=== PATIENT | male | born 1965 | race Caucasian/White ===

== ENCOUNTER 2018-10-14 09:21 | Inpatient (IN) | payer OTHER ==
[2018-10-14] MEDS ORDERED: ZIPRASIDONE 20 MG VIAL IM STA (09:47)
[2018-10-14] MEDS ORDERED: LORazepam 2 MG/ML INJ IM STA (09:47)
--- NOTE | 2018-10-14 10:03 | ED ---
General Adult HPI <James Vazquez - Last Filed: 10/14/18 11:00> - General Source: police, RN notes reviewed, old records reviewed Mode of arrival: ambulatory Limitations: no limitations <Andra Prajapati - Last Filed: 10/14/18 12:17> - General Chief complaint: Psychiatric Symptoms Stated complaint: petition Time Seen by Provider: 10/14/18 09:23 - History of Present Illness Initial comments: 53-year-old male presents to the emergency department today with complaints of petitioned. Patient is petitioned by nursing staff at [facility] for delusional behavior, auditory and visual hallucinations. Patient reportedly thinks that there are women and children being raped. He states that he they Group Home is attempting to retrieve his DNA. Patient was uncooperative and combative with police upon arriving to hospital. 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 Patient is uncooperative to say he has a mental health history. (Andra Prajapati) Review of Systems ROS Other: All systems not noted in ROS Statement are negative. <James Vazquez - Last Filed: 10/14/18 11:00> ROS Other: All systems not noted in ROS Statement are negative. <Andra Prajapati - Last Filed: 10/14/18 12:17> ROS Statement: Those systems with pertinent positive or pertinent negative responses have been documented in the HPI. Past Medical History Past Medical History: No Reported History History of Any Multi-Drug Resistant Organisms: None Reported Past Surgical History: No Surgical Hx Reported Smoking Status: Never smoker Past Alcohol Use History: Occasional Past Drug Use History: None Reported <Andra Prajapati - Last Filed: 10/14/18 12:17> General Exam Limitations: no limitations General appearance: alert, in no apparent distress Head exam: Present: atraumatic, normocephalic, normal inspection Eye exam: Present: normal appearance, PERRL, EOMI. Absent: scleral icterus, conjunctival injection, periorbital swelling ENT exam: Present: normal exam, mucous membranes moist Neck exam: Present: normal inspection. Absent: tenderness, meningismus, lymphadenopathy Respiratory exam: Present: normal lung sounds bilaterally. Absent: respiratory distress, wheezes, rales, rhonchi, stridor Cardiovascular Exam: Present: regular rate, normal rhythm, normal heart sounds. Absent: systolic murmur, diastolic murmur, rubs, gallop, clicks GI/Abdominal exam: Present: soft, normal bowel sounds. Absent: distended, tenderness, guarding, rebound, rigid Extremities exam: Present: normal inspection, full ROM, normal capillary refill. Absent: tenderness, pedal edema, joint swelling, calf tenderness Back exam: Present: normal inspection Neurological exam: Present: alert, oriented X3, CN II-XII intact Psychiatric exam: Present: agitated, manic, other (Evidence of pressured speech. Patient is delusional, and paranoid. Believing that the government is after him. ). Absent: normal affect, normal mood Skin exam: Present: warm, dry, intact, normal color. Absent: rash <Andra Prajapati - Last Filed: 10/14/18 12:17> - General Exam Comments Initial Comments: This is a 53-year-old male. Alert and oriented. No distress. (Andra Prajapati) Course Vital Signs 10/14/18 09:22 Respiratory 14 Rate Medical Decision Making <James Vazquez - Last Filed: 10/14/18 11:00> <Andra Prajapati - Last Filed: 10/14/18 12:17> - Medical Decision Making Patient reevaluated by myself, Dr. Vazquez. Patient was seen by mental health services with plan for admission. Patient is expressing paranoid behavior. Patient has flight of ideas. Patient is agitated at being questioned. Patient states he has never supposed to be on medications and will only take medications if given by the FBI. Patient denies suicidal or homicidal thoughts. Patient states he has been eating or drinking. Patient is confabulating and states it is fraud to attempt to evaluate or bill him. Patient is under custody of officers at this time. Patient does come with petition. Positive clinical certificate completed. (James Vazquez) 53-year-old male presents for EPS evaluation. He is currently at [facility]. Patient was noted to be expressing paranoid behavior bleeding at the FBI and government are after him. Had pressured speech. He has not trusting people around him. Patient at this time is medically clear for EPS evaluation. Tito bonner was petitioned and clinical certification was filled out by Dr. Vazquez. Patient will be admitted this time. Due to agitation we do have Ativan and Geodon ready at bedside if he would become hostile. he is with 2 [facility] officers. (Andra Prajapati) Disposition <James Vazquez - Last Filed: 10/14/18 11:00> Is patient prescribed a controlled substance at d/c from ED?: No Time of Disposition: 12:17 <nAdra Prajapati - Last Filed: 10/14/18 12:17> Clinical Impression: Paranoid delusion, Confabulation, Psychosis Disposition: ADMITTED IP TO THIS HOSP Condition: Stable Referrals: None,Stated [Primary Care Provider] - 1-2 days
[2018-10-14 13:39] LABS: Amphetamine Screen,Urine Not Detected (NotDetected); Barbiturate Screen,Urine Not Detected (NotDetected); Benzodiazepines Screen,Urine Not Detected (NotDetected); Cocaine Screen,Urine Not Detected (NotDetected); Methadone Screen, Urine Not Detected (NotDetected); Opiate Screen,Urine Not Detected (NotDetected); Oxycodone Screen, Urine Not Detected (NotDetected); Phencyclidine Screen,Urine Not Detected (NotDetected); Tricyclic Antidepressant,Urine Not Detected (NotDetected); Urn Cannabinoid Scrn Not Detected (NotDetected)
[2018-10-14] MEDS ORDERED: MAGNESIUM HYDROXIDE 2,400 MG/10 ML CUP PO PRN (15:18)
[2018-10-14] MEDS ORDERED: ZIPRASIDONE 20 MG VIAL IM PRN (15:18)
--- NOTE | 2018-10-15 07:00 | P.PN ---
Progress Note - Text Progress Note Date: 10/15/18 patient refused to be seen for medical evaluation at this point
--- NOTE | 2018-10-15 16:45 | HP ---
HISTORY AND PHYSICAL DATE OF SERVICE: 10/15/2018. This is a psychiatric admission note, psychiatric history and physical. IDENTIFYING DATA: The patient is a 53-year-old male. Living circumstances are uncertain. He was brought to the ED by police. CHIEF COMPLAINT: The patient was paranoid, believing that he and people around him were being threatened. He had delusions and auditory hallucinations. His thoughts were disorganized. HISTORY OF PRESENTING ILLNESS: The patient provided no reliable information and in fact essentially ended the interview after just a couple questions. He came on petition for involuntary hospitalization. According to the petition, the patient was expressing a lot of persecutory delusions. He talked about violence, killing and threats. He made statements as follows: He believed a certain deputy is a "drug lord ana lilia pin and needs to and that "women are being raped and killed." He believed [employer] was creating a date rape drugs that are being given to all women. He was placed in care home on 09/08/2018 for trespassing, disorderly conduct, resisting and obstructing. He was not cooperative with any evaluations whether in care home or at the hospital. He apparently has recently moved from the [facility], though there were no details regarding this. It is unclear whether he has been on any psychotropic medications. He did not provide information as to whether or not he has had any past psychiatric hospitalizations or other mental health interventions. He is admitted for further evaluation. SUBSTANCE USE HISTORY: Uncertain. PAST MEDICAL HISTORY: As per medical consultation of Dr. Marie. PHYSICAL EXAM: As per medical consultation of Dr. Marie. FAMILY AND SOCIAL HISTORY: Uncertain. MENTAL STATUS EXAM: Patient was a restless. He gave fair eye contact at best. He responded to a few questions by talking about some legal process that was in the works. He made one comment that he had already provided information and was not going to provide anymore. He then got up and left the interview. His thoughts seemed disorganized. He exhibited paranoid thinking. ASSESSMENT: This 53-year-old male is diagnosed with psychosis NOS. We have no history to go on which presents major limitations in ability to evaluate and treat psychosocial stressors are uncertain. Support system unknown. STRENGTHS: Include his general physical health. WEAKNESS: Includes significant thought disorder. DIAGNOSES: Psychosis NOS. RECOMMENDATIONS: Patient will be admitted for comprehensive medical psychiatric and psychosocial evaluation. We will engage the patient in individual and group therapeutic activities. The patient will be encouraged to start on psychotropic medications. I will order Zyprexa 10 mg twice a day. At this point, I anticipate the patient is not likely to take medications based on his presentation. We will continue with the process for involuntary hospitalization. We will continue to focus on stabilization and discharge planning. HUSAM / SEAN: [id number] / MTDFelipe
[2018-10-15] MEDS: OLANZapine 10 MG TAB PO SCH (21:00)
[2018-10-16] MEDS ORDERED: HALOPERIDOL LACTATE 5 MG/ML 1 ML VIAL IM PRN (08:40)
[2018-10-16] MEDS ORDERED: LORazepam 2 MG/ML INJ IV PRN (08:46)
[2018-10-16] MEDS: OLANZapine 10 MG TAB PO SCH (10:06)
[2018-10-16] MEDS ORDERED: LORazepam 2 MG/ML INJ IM PRN (10:19)
--- NOTE | 2018-10-16 12:01 | PN ---
PROGRESS NOTE DATE OF SERVICE: 10/16/2018 CHIEF COMPLAINT: The patient was paranoid, believing that he and people around him were being threatened. He had delusions and auditory hallucinations. His thoughts were disorganized. INTERVAL HISTORY: Patient has been doing fair. He had a quiet evening last night. He wanders the unit. He does not really interact with others. Sometimes he will be talking quite a bit, though much of what he says either has paranoid themes or is difficult just to clarify the meaning of things he is saying. He makes statements that are quite delusional. He slept fair. Today he has been up. He continues the same. He does not attend groups. A typical response is documented as follows "blog writer attempted to engage, patient walked away shaking had no." When I talked to him, the response was pretty similar. He made comments about how Psychiatry is wrapped up with people just trying to make money and also that medications will kill people. He actually talked a little bit and seemed slightly more engaging, though he really was not able to have any kind of a productive conversation. There have been a few periods where he seems to get intense, though there has not been significant behavioral issues. He declines taking any psychotropic medications. MENTAL STATUS: Patient was in the anderson. He gave fair eye contact, he was restless. He responded to a few questions but most of his statements were tangential to questions asked. His affect was a little intense, though overall he had a fairly calm manner. He did dismiss the conversation at one point and simply walked away. His mood was dysphoric. He continues to make a lot of delusional statements. Whether or not he responds to internal stimuli beyond his paranoia is uncertain. ASSESSMENT: I will continue the current diagnosis and treatment plan. Will continue to make efforts to engage the patient in individual and group therapeutic activities. He has an antipsychotic ordered. However, at this point, he is declining taking medications. We are continuing with the process of petitioning for involuntary treatment. MMODL / IJN: [id number] /
[2018-10-17] MEDS: OLANZapine 10 MG TAB PO SCH ×3 (06:14→22:04)
--- NOTE | 2018-10-17 11:59 | PN ---
PROGRESS NOTE DATE OF SERVICE: 10/17/2018 CHIEF COMPLAINT: The patient was paranoid, believing that he and people around him were being threatened. He had delusions and auditory hallucinations. His thoughts were disorganized. INTERVAL HISTORY: The patient remains static in his overall function. He does not attend groups. He wanders the unit, he will walk up and down the halls. Sometimes he will make some comments. At times the comments are random, at other times he might say something specific to staff, most of the time it has to do that he intends to resolve his issues in the courts. He sleeps fair at nighttime. Today he has been up. He continues to wander. When I made an effort to speak to him, he just walked away. As he was walking away, he made some comments about seeing me in court, though he did not say anything more than that. His affect is somewhat intense. Mood dysphoric. He seems significantly distressed and preoccupied with paranoid delusions. ASSESSMENT: I will continue the current diagnosis and treatment plan. I continue to offer to the patient that if he has any problems or concerns, to approach any of our staff or myself. I also noted that I have written an order for some medications if he chooses to take them, which may help overall. We continue to wait for the court process to proceed with involuntary hospitalization. We will continue to focus on stabilization and discharge planning. HUSAM / SEAN: [id number] /
[2018-10-18] MEDS: OLANZapine 10 MG TAB PO SCH ×2 (10:39→20:04)
--- NOTE | 2018-10-18 18:48 | PN ---
PROGRESS NOTE DATE OF SERVICE: 10/18/2018. CHIEF COMPLAINT: The patient was paranoid, believing that people around him were being threatened. He had delusions and auditory hallucinations. His thoughts were disorganized. INTERVAL HISTORY: The patient continues the same. He wanders the unit. He will sit in various places in the day areas. He does not interact much with others as far as what I can tell. He does not attend groups. Often he will make some tangential comments if staff walk by making statements such as taking them to court. He will not provide any reliable information about his current situation or any concerns he might have. MENTAL STATUS: Patient was sitting in the anderson. When I approached him, he got up and walked away. I did see him very briefly a little later on, though was essentially the same. He made a comment about suing all of the staff. His affect was intense. His mood dysphoric. He was significantly distressed. He exhibited paranoid thinking. ASSESSMENT: I will continue current diagnosis and treatment plan. We will continue to make efforts to engage the patient in individual and group therapeutic activities. We will continue with the court process. HUSAM / SEAN: [id number] /
[2018-10-19] MEDS: OLANZapine 10 MG TAB PO SCH ×2 (10:02→19:57)
--- NOTE | 2018-10-19 19:34 | PN ---
PROGRESS NOTE DATE OF SERVICE: 10/19/2018. CHIEF COMPLAINT: The patient was paranoid, believing that people around him are being threatened. He had delusions and auditory hallucinations. His thoughts were disorganized. INTERVAL HISTORY: The patient continues the same. He wanders the unit. He will sit in various day areas. He seems to pay attention to things going on around him. He does not interact with others. When I came into the unit today he was sitting in a chair near the entrance door. I asked how he was doing and if he had any questions. At that point, he got up and walked away. As he was walking away, he made the statement that he plan to veena [employer] Marce in court. He otherwise would not engage in any conversation. He sleeps well at night. He continues off psychotropic medications. MENTAL STATUS: Patient gave a little eye contact. He declined coming into the office. He made a few tangential comments as the only thing that he communicated. He had an intense affect. His mood was dysphoric. He seemed moderately distressed. He continues to show paranoid ideation. ASSESSMENT: I will continue the current diagnosis and treatment plan. He continues all psychotropic medications. We continued with the court process. MMODL / JESSICAN: [id number] /
[2018-10-20] MEDS: OLANZapine 10 MG TAB PO SCH ×2 (08:59→21:51)
--- NOTE | 2018-10-20 09:08 | PN ---
PROGRESS NOTE DATE OF SERVICE: 10/20/2018 CHIEF COMPLAINT: The patient was paranoid, believing that people around him are being threatened. He had delusions and auditory hallucinations. His thoughts were disorganized. INTERVAL HISTORY: There has been no appreciable change in his condition since admission. He declines taking medications. He declines talking with me when I do rounds or to that matter pretty much any staff person. He keeps to himself. He does seem to be hypervigilant. He has not had any significant behavioral difficulties other than his withdrawal. He continues to make comments with paranoid themes. MENTAL STATUS: The patient was sitting in his usual place in the unit near the back telephone. He was just sitting quietly when I came in I approached him a little later in the morning and he had his usual response of standing up and walking away. He made some mumbling comments though was hard to hear what he was saying. His affect was reserved and somewhat angry. He appeared to have a dysphoric mood. He continues with paranoid thinking. He seems moderately distressed. ASSESSMENT: I will continue the current diagnosis and treatment plan. We will continue the plan the same namely to proceed with the involuntary treatment process. There is a hearing scheduled for Saturday. We will focus on stabilization and discharge planning. MMLILLIAML / IJN: [id number] /
[2018-10-21] MEDS: OLANZapine 10 MG TAB PO SCH ×2 (08:23→22:19)
--- NOTE | 2018-10-21 10:17 | P.PN ---
Progress Note - Text Progress Note Date: 10/21/18 Interval history: The patient was admitted to the hospital with acute symptoms of psychosis from the prison. The psychiatric evaluation was reviewed. The patient is found in his room. Immediately upon approach he states he does not wish to have a conversation with me. He rejects the idea that I am the psychiatrist assigned to his case. He states he does not need my services and accuses me of" bullying him". He states that I am participating in extortion. He states that he will be pressing charges against me if I don't leave the room immediately. An opportunity was offered for him to ask any questions about treatment options or the hospitalization and he refused. He started to become louder and started to escalate as the brief interaction continued until I left the room. He was not willing to me in an interview room. Mental status exam: The patient is a male he is dressed in his own clothing he is lying on the floor reviewing papers and a half older. He is agitated upon approach. He demonstrates paranoid and persecutory thinking. He begins to escalate as the session progresses. He was intrusive in the conversation. Thought process was not well organized. Insight and judgment are poor. He demonstrates no involuntary repetitive movements. He would not answer any questions. Impression/plan: Acute symptoms of psychosis suspect history of schizophrenia/schizoaffective disorder, the patient is being offered Zyprexa 10 mg twice daily which she is refusing. We are awaiting his deferral conference/court hearing. Vital signs reviewed. Available lab work reviewed. Staff report that he slept 4 hours last evening. We will monitor his by mouth intake in general safety risk while here in the hospital. He requires continued involuntary hospitalization due to his acute symptoms of psychosis.
[2018-10-22] MEDS: OLANZapine 10 MG TAB PO SCH ×2 (08:55→21:00)
--- NOTE | 2018-10-22 09:59 | P.PN ---
Progress Note - Text Progress Note Date: 10/22/18 Interval history: The patient's is found in his room kneeling on the floor at the foot of his bed. He refuses to engage in a conversation he will not follow me to an interview room. He gets up and closes the door to his room. Staff report he slept 4 hours. He is attending meals. He is noted to ambulate in the hallway throughout the day. He states that I'm not in control of him and I am invading his privacy. Mental status exam: The patient is alert he is found kneeling on the floor at the foot of his bed. He makes eye contact. He is immediately irritable. He makes statements reflecting a paranoid and persecutory thought content. He gets up and closes the door on me concluding our interaction. His speech and behavior indicate that he is experiencing acute symptoms of psychosis. Insight and judgment are poor. He is refusing medication. He was observed to have no involuntary repetitive movements. Impression/plan: Acute symptoms of psychosis, noncompliant with interview and medication. We are awaiting his court hearing this Saturday. We will continue to monitor him for safety. It appears he is refusing vital signs. We will monitor his by mouth intake.
--- NOTE | 2018-10-23 11:13 | P.PN ---
Progress Note - Text Interval history: The patient's is found in the hallway as he is been ambulating throughout the morning. Twice I approached him to speak and he refuses to participate in an interview. After he refuses to meet with me he does make some statements loudly down the hallway as he is walking away. Staff report that he has been isolating in his room other than when he is pacing the hallway. Reportedly he is eating meals. It's documented that he slept 6 hours last evening. Mental status exam: The patient is alert he stressors own clothing eye contact is poor. He remains irritable and continues to refuse an interview. He makes statements about being held illegally that he is being exploited. Staff report that he writes numerous letters and asked that they be mailed. Insight and judgment are poor. He demonstrates speech and behavior indicating he has a delusional thought content. These symptoms appear to be causing significant psychosocial dysfunction. He demonstrates no involuntary repetitive movements that are observed during our brief interactions. Impression/plan: The patient's continues to demonstrate acute symptoms of psychosis. He requires an antipsychotic medication which he is refusing. He has a court date scheduled for tomorrow morning. We will continue to monitor him for safety. It appears he is refusing vital sign measurement.
[2018-10-23] MEDS: OLANZapine 10 MG TAB PO SCH ×2 (11:35→20:28)
[2018-10-24] MEDS: OLANZapine 10 MG TAB PO SCH (08:35)
--- NOTE | 2018-10-24 15:43 | P.PN ---
Progress Note - Text Progress Note Date: 10/24/18 Interval history: The patient was found in the hallway. Once again attempt was made to interview him but he refused. He spontaneously stated he was not going to go to court this morning as he required escort by city police officers and not sure if deputies. He states that I am an extortionistand he walked away. As he walked away he was observed talking out loud to himself. He was observed doing the same throughout the morning. Mental status exam: The patient is alert he is easily agitated he is dressed in his own clothing. He has a disheveled appearance. Eye contact is brief. Affect is irritable. He continues to spontaneously describe paranoid and persecutory thinking. Insight and judgment are impaired. Thought process is not well organized. He demonstrates no physical aggressiveness. He demonstrates no involuntary repetitive movements. Impression/plan: The patient continues to demonstrate acute symptoms of psychosis impairing his function. We will initiate invega 6 mg daily. He is on a court order if he refuses the medication he will receive a Geodon injection. We will monitor him for safety and encourage appropriate participation in the milieu. Reality orientation will be provided when possible.
[2018-10-24] MEDS: PALIPERIDONE 6 MG TAB.ER.24 PO SCH ×2 (15:52→16:03)
[2018-10-24] MEDS: ZIPRASIDONE 20 MG VIAL IM PRN (16:03)
[2018-10-25] MEDS: PALIPERIDONE 6 MG TAB.ER.24 PO SCH (09:24)
[2018-10-25] MEDS: ZIPRASIDONE 20 MG VIAL IM PRN (09:30)
--- NOTE | 2018-10-25 10:33 | P.PN ---
Progress Note - Text Progress Note Date: 10/25/18 Interval history: Patient was seen briefly after he received a forced med administration as he is currently court ordered. Patient tolerated the Geodon well. Patient was reluctant and hostile to talk to scientific writer. He told scientific writer to leave the room several times and swore at him. Patient continues to be tangential and illogical and rambled on several different delusions. She did not endorse any suicidal or homicidal ideations intent or plan. Admits to some Auditory hallucinations. Patient denies any side effects from the medications however continues to refuse his Invega by mouth tabs. Mental status exam: General Appearance: Patient appears to be stated age is alert, uncooperative and hostile. Poor grooming and hygiene Behavior: Patient appeared to be mildly agitated. Speech: Patient's speech is disorganized Mood/Affect: Mood is poor, affect is congruent and constricted. Suicidality/Homicidality: Patient denies having any suicidal or homicidal ideation intent or plan. Perceptions: Admits to some auditory hallucinations. Though content/process: Rambles, several loosely formed delusions. Is tangential and illogical. Memory and concentration: AOX2, grossly intact for the purposes of this session Judgment and insight: Poor Assessment/Plan: Continue with current diagnosis. Patient continues to meet criteria for inpatient psychiatric admission for symptom stabilization and safety.[Patient will be maintained on current psychotropic medication regimen.] Patient continues to refuse Invega by mouth, however does have a active court order and will be receiving Geodon IM if he refuses his by mouth medications. Monitor for medication compliance and for any psychotropic medication side effects. Will continue to monitor ongoing response to treatment.
[2018-10-26] MEDS: ZIPRASIDONE 20 MG VIAL IM PRN ×2 (09:03→21:29)
[2018-10-26] MEDS: PALIPERIDONE 6 MG TAB.ER.24 PO SCH (09:03)
--- NOTE | 2018-10-26 12:07 | P.PN ---
Progress Note - Text Progress Note Date: 10/26/18 Interval history: Patient was seen briefly today after he received another forced med administration as he is currently court ordered. Patient tolerated the Geodon well. Patient again was hostile and reluctant to speak to engineering technical writer in the room and was covered in blankets and turned his head when engineering technical writer came into the room. Patient asked repeatedly if engineering technical writer was the one that ordered the med hold and it was explained to him that that she is court ordered at this time and is required to receive the medications. Patient interrupted engineering technical writer several times swearing and refusing to talk to him. Patient continues to be tangential and illogical and rambled on several different delusions. She did not endorse any suicidal or homicidal ideations intent or plan. Patient denies any side effects from the medications however continues to refuse his Invega by mouth tabs. Mental status exam: General Appearance: Patient appears to be stated age is alert, uncooperative and hostile. Poor grooming and hygiene Behavior: Patient appeared to be mildly agitated. Speech: Patient's speech is disorganized, improving mildly Mood/Affect: Mood is poor, affect is congruent and constricted. Suicidality/Homicidality: Patient denies having any suicidal or homicidal ideation intent or plan. Perceptions: Admits to some auditory hallucinations. Though content/process: Rambles, several loosely formed delusions. Is tangential and illogical. Memory and concentration: AOX2, grossly intact for the purposes of this session Judgment and insight: Poor Assessment/Plan: Continue with current diagnosis. Patient continues to meet criteria for inpatient psychiatric admission for symptom stabilization and safety. Patient will be maintained on current psychotropic medication regimen. Patient continues to refuse Invega by mouth, however does have a active court order and will be receiving Geodon IM if he refuses his by mouth medications. Monitor for medication compliance and for any psychotropic medication side effects. Will continue to monitor ongoing response to treatment.
[2018-10-26] MEDS: LORazepam 2 MG/ML INJ IM PRN (21:30)
[2018-10-27] MEDS ORDERED: HALOPERIDOL LACTATE 5 MG/ML 1 ML VIAL IM STA (06:05)
[2018-10-27] MEDS: LORazepam 2 MG/ML INJ IM PRN (06:15)
[2018-10-27] MEDS: PALIPERIDONE 6 MG TAB.ER.24 PO SCH (09:44)
[2018-10-27] MEDS ORDERED: WATER FOR INJECTION, STERILE 10 ML IV ONE (09:45)
[2018-10-27] MEDS ORDERED: ZIPRASIDONE 20 MG VIAL IM ONE (09:45)
[2018-10-27] MEDS: ZIPRASIDONE 20 MG VIAL IM PRN (10:17)
--- NOTE | 2018-10-27 11:10 | P.PN ---
Progress Note - Text Interval history: The patient is found in his room he tolerated a five-minute conversation while he was in his room. he later approached me during the morning and we spoke in an interview room. That conversation last approximately 10-15 minutes. He asked several questions asked how he was admitted here from the senior care. He is bothered by the idea that he is being forced to take psychotropic medication. His questions were addressed. He has finally participated in a conversation but he remains acutely delusional. He states he has no symptoms he does not require medication and he is being in wrongly held against his will. He states that he will do better being on the streets and describes some ways in which he obtains food. He states that is his goal to get to [place] where they treat people better. He has been refusing the oral invega. He's been receiving Geodon injections when he refuses. Due to agitation he received a Haldol injection this morning. He was given an opportunity to discuss alternatives to invega but he does not participate in the conversation. Mental status exam: The patient is alert he is dressed in his own clothing. He is a disheveled appearance. There was some follow body odor detected when speaking to him in his room. Eye contact is staring in nature. Speech is spontaneous he is verbose and pressured at times. He continues to interrupt me in conversation even when I'm trying to answer a question he asked. He continues to demonstrate several types of paranoid persecutory thinking. He spends most of the time discussing how the Direct [employer] Manager's deputies and our local personnel clerk are trying to start a human trafficking reigning in the senior care. He states that they're trying to get medicines made by embraase to make people unconscious so they can be raped. Insight and judgment are poor. He demonstrated no verbal or physical aggressiveness he demonstrates no involuntary repetitive movements. Impression/plan: Acute symptoms of psychosis likely part of a schizophrenia diagnosis, we will continue offering the invega. He is receiving Geodon injections when he refuses. There is some improvement in that he participated in a conversation however he remains acutely psychotic still. We will consider switching him to Haldol and later utilizing a Haldol decanoate. Vital signs reviewed. We will monitor him for safety.
[2018-10-28] MEDS: ZIPRASIDONE 20 MG VIAL IM PRN (10:41)
[2018-10-28] MEDS: PALIPERIDONE 6 MG TAB.ER.24 PO SCH (10:51)
--- NOTE | 2018-10-28 10:59 | P.PN ---
Progress Note - Text Interval history: The patient is found in the hallway. Despite two attempts he refused to meet with me and provided no verbal response. He continues to refuse the oral Invega and has been receiving a Geodon injection instead. He has not been attending groups he will isolate in his room when he is not ambulating in the hallway. Staff report that he is adequately eating. It was reported that he did not sleep last evening. Mental status exam: The patient is alert he is observed ambulating in the hallway throughout the morning. He has a disheveled appearance hygiene is impaired. He has a staring eye contact. He provides no verbal responses to questions. He is observed yelling out to staff this morning out of frustration that he has to take a psychotropic medication. He was redirectable by staff. Insight and judgment remain poor. He is demonstrating no involuntary repetitive movements. He continues to have a delusional thought process. Impression/plan: Continued acute symptoms of psychosis impairing psychosocial function. The patient has been on a court order now for several days we have continue to offer the invega orally which he will not take. He has received several Geodon injections in place of the oral invega. It is important that the patient leaves the mental health unit on an injectable Depo form of an antipsychotic. At this time we will discontinue the invega and offer oral Haldol and he will receive Haldol IM if he refuses in that we can provide a Haldol decanoate injection prior to discharge. Vital signs reviewed. We will continue to monitor him for safety. He requires continued psychiatric hospitalization.
[2018-10-28 13:21] VITALS: BMI 26.6
[2018-10-29] MEDS ORDERED: LORazepam 2 MG/ML INJ ONE (03:45)
[2018-10-29] MEDS ORDERED: HALOPERIDOL LACTATE 5 MG/ML 1 ML VIAL ONE (03:45)
[2018-10-29] MEDS ORDERED: HALOPERIDOL 5 MG TAB PO SCH (09:00)
[2018-10-29] MEDS: HALOPERIDOL LACTATE 5 MG/ML 1 ML VIAL IM PRN ×2 (09:38→21:47)
--- NOTE | 2018-10-29 09:58 | P.PN ---
Progress Note - Text Progress Note Date: 10/29/18 Interval history: The patient is found in the hallway he approaches me to speak. We spoke briefly in the [facility]. He spontaneously describes a variety of paranoid and persecutory thoughts. He accuses me of trying to take his so security money and holding him here illegally. He indicates he does not need medication and he will never take oral medication. He states that he needs to leave the hospital as soon as possible as it takes him at least one month to walk down south for the [place]. He continues to refuse oral medication and is receiving it in injection form. Staff recorded he only slept 3-4 hours last night. He is participating in meals. He is observed ambulating in the hallway throughout the morning. Mental status exam: The patient is alert he has a disheveled appearance he is dressed in his own clothing. He is seated in the chair briefly until he gets up and leaves terminating the interview. He looks about the room often looking over to the right in a suspicious manner. He makes a variety of accusation all statements regarding myself and the staff. He clearly has paranoid and persecutory thinking as part of his thought content. His thought process is not well organized he demonstrates tangential thinking and loose associations. He lacks insight into the need for this admission and his judgment is subsequently impaired. He demonstrates no verbal or physical aggressiveness but he is mildly irritable during the interaction. He demonstrates no acute physical distress. He demonstrates no repetitive involuntary movements. He reports no thoughts of wanting to harm himself or others. Impression/plan: Acute psychosis likely schizophrenia, I will increase the oral Haldol to 5 mg twice daily. Again he will receive an injection if he refuses. Once we see that there is some clinical improvement with the Haldol we will proceed with using a Haldol decanoate injection. Vital signs reviewed. He is encouraged to participate in groups we will make efforts to provide reality orientation when possibleHe requires continued psychiatric hospitalization..
[2018-10-29] MEDS: LORazepam 2 MG/ML INJ IM PRN (21:54)
[2018-10-29] MEDS: HALOPERIDOL 5 MG TAB PO SCH (22:04)
[2018-10-30] MEDS: HALOPERIDOL 5 MG TAB PO SCH ×2 (09:57→20:46)
[2018-10-30] MEDS: HALOPERIDOL LACTATE 5 MG/ML 1 ML VIAL IM PRN ×2 (09:58→21:01)
--- NOTE | 2018-10-30 11:41 | P.PN ---
Progress Note - Text Interval history: The patient is found the hallway he approaches me to speak. We met in an interview room. He has his court paperwork with him he asked me to review it he asked several questions about it area and he remains intrusive and conversation. He continues to assert that he is stable and does not require involuntary hospitalization. He states he needs to go to [place] and then begin walking [place] for the winter. He states that he is survived homeless for 3 years and does not need anyone's help. Staff report he continues to write numerous letters. He did address a letter to me. The latter is not well organized and he continues to state that he has given up his Social Security benefits. Mental status exam: The patient is alert he is dressed in his own clothing hygiene is impaired grooming is adequate. Eye contact is staring in nature. He has an irritable affect but he demonstrates no aggressive behavior. He is directable at the conclusion of our conversation. He continues to demonstrate paranoid and persecutory thoughts. He has poor insight into his symptoms and subsequently his judgment is poor. He continues to require injections of his medicine as he refuses to take it orally. He is oriented to person place month day and year. He spontaneously describes future oriented thinking but it is psychotic in nature. Thought process is not well organized. Impression/plan: The patient remains acutely psychotic. The only improvement noted so far is that he is attempting to sit down and participate in a conversation. He requires continued hospitalization and medication management. I'm hoping that the Haldol starts to attenuate his symptoms. We will monitor him for safety and will continue trying to provide reality orientation.
[2018-10-31] MEDS: HALOPERIDOL 5 MG TAB PO SCH ×2 (09:21→21:39)
[2018-10-31] MEDS: HALOPERIDOL LACTATE 5 MG/ML 1 ML VIAL IM PRN ×2 (09:22→21:39)
--- NOTE | 2018-10-31 10:25 | P.PN ---
Progress Note - Text Interval history: The patient is found in the hallway he approaches me to speak. He follows me to an interview room. He continues to show me the same paperwork. He continues to refute the facts on the court order. He states that he is not a harm to himself or others either intentionally or unintentionally. He continues to state that he is working with the government and that he needs to be discharged immediately. Again it is his plan to spend the next month walking down self. He reports feelings at the [facility] in the court system are corrupt and people are being given date rape drugs while incarcerated. He continues to refuse oral medication and is receiving injections of the Haldol subsequently. Mental status exam: The patient is alert he is dressed in his own clothing grooming is adequate hygiene is improving. Eye contact is appropriate. He is directable. He continues to spontaneously describe paranoid and persecutory thoughts. He demonstrates no agitation however when he does this. Insight and judgment remain poor in that he has no appreciation for his psychiatric symptoms or the need for treatment. He demonstrates no verbal or physical aggressiveness he demonstrates no involuntary repetitive movements. He is oriented to person place and date. Affect is blunted. He reports no thoughts of harming himself or others. Thought process is not well organized he is ruminative at times. Impression/plan: The patient will continue on the current medication. Once we feel that the Haldol is stabilizing him we will initiate a Haldol decanoate. I suspect he has symptoms of psychosis at baseline but we are looking to attenuate those is much as possible. We have no collateral sources of information to draw from in determining his baseline function. Vital signs reviewed. He is encouraged to participate in the milieu. Reality orientation is provided with possible.
[2018-11-01] MEDS: HALOPERIDOL LACTATE 5 MG/ML 1 ML VIAL IM PRN (08:58)
[2018-11-01] MEDS: HALOPERIDOL 5 MG TAB PO SCH ×2 (08:59→20:54)
--- NOTE | 2018-11-01 15:08 | P.PN ---
Progress Note - Text Progress Note Date: 11/01/18 IDENTIFICATION DATA: The patient was admitted to the hospital with acute symptoms of psychosis from the [facility]. INTERVAL HISTORY: Patient was seen today. He was very delusional with pressured, disorganized speech. He reports he doesnt attend groups stating he is not here for that. He reports its boring being in the hospital and being with other patients and states its against scriptures in the bible. He has been observed pacing floors, talking to self. He stated he was forced to take shots as he doesnt like to take pills by mouth. MENTAL STATUS EXAMINATION: The patient is alert and oriented 4 and in no apparent distress. Mintians good eye contact. His speech and thought process are incoherent rambling Mood is euthymic and affect is broad . thought content is delusional, talked about protective devices used by pilots to listen others. Denies suicidal or homicidal ideation. insight and judgment are limited. ASSESSMENT Schizoaffective disorder PLAN: Continue current treatment.
[2018-11-02] MEDS: HALOPERIDOL 5 MG TAB PO SCH ×2 (09:22→20:51)
--- NOTE | 2018-11-02 16:55 | P.PN ---
Progress Note - Text Progress Note Date: 11/02/18 IDENTIFICATION DATA: The patient was [facility] the [facility] INTERVAL HISTORY: Patient was seen today. He states he is not psychotic and does not need any medications. He satets his main problems is NECROSIS which comes and goes. He says he doesnt sleep well due to being on medications. He constantly paces floor and when asked about it he states that is his way of travel and help his circulation. He when asked about his eating he stated he eats soil which gives him carbon. MENTAL STATUS EXAMINATION: 53 year old male. He appears his stated age in fair grooming and hygeine. His speech and thought process are illogical. His mood is reported as pleasant and affect flat. The patient is alert and oriented 4 and in no apparent distress. Maintians good eye contact. thought content is delusional, Denies suicidal or homicidal ideation. insight and judgment are limited. ASSESSMENT Schizoaffective disorder PLAN: Continue current treatment.
[2018-11-03] MEDS: HALOPERIDOL 5 MG TAB PO SCH ×2 (10:06→21:11)
--- NOTE | 2018-11-03 10:19 | P.PN ---
Progress Note - Text Interval history: The patient is found the hallway he approaches me to speak. We spoke in an interview room. He spontaneously states for several minutes that he wants to be discharged. He states he needs fresh air he needs to start heading south before the subacute 0 temperatures hit. He explains that he was in the state [facility] but had to leave because of the controversy related to date rape drugs. He states that he is not psychotic and that he is neurotic but fails to describe the difference. He states he doesn't need psychotropic medication because he is not psychotic. It appears for the last 3 doses he has taken the Haldol orally. Mental status exam: The patient is alert he is dressed in his own clothing eye contact is staring in nature. Verbally he is more irritable today and confrontational at times but he demonstrates no physical aggressiveness. He continues to describe paranoid and persecutory thoughts and has poor insight into those symptoms. Thought process can be disorganized at times. He demonstrates no involuntary repetitive movements. He reports no thoughts of harming himself or harming others. Impression/plan: Continued symptoms of psychosis, continue Haldol as written we will consider titrating the dose. We will monitor him for safety and encourage appropriate participation in the milieu. In the event that his symptoms of psychosis don't significantly improve we will explore placement options. He requires continued psychiatric hospitalization.
[2018-11-03] MEDS: LORazepam 1 MG TAB PO PRN (12:04)
[2018-11-03] MEDS: ACETAMINOPHEN TAB 325 MG TAB PO PRN ×3 (12:31→21:18)
[2018-11-04] MEDS: ACETAMINOPHEN TAB 325 MG TAB PO PRN ×4 (05:29→18:34)
[2018-11-04] MEDS: HALOPERIDOL 5 MG TAB PO SCH ×2 (08:19→21:07)
--- NOTE | 2018-11-04 09:40 | P.PN ---
Progress Note - Text Interval history: The patient is found in the hallway he approaches me to speak. He indicates he is taking the Haldol orally as he no longer wants injections. He states that he couldn't find me on the petition so I don't have an order. He indicates that I am forcibly medicating him and he is going to have to go to court again. He reports appetite is stable he indicates he slept last night staff report he slept about 5-6 hours. He is demonstrating no agitated behavior. He indicates that in the past he had been on Risperdal and Zyprexa. Mental status exam: The patient is alert he is dressed in his own clothing grooming is adequate hygiene fair. Eye contact is staring in nature. He continues to lack insight into his symptoms of psychosis. He has been much more directable over the last week compared to when he was admitted. He continues to describe paranoid persecutory thoughts. Thought process is disorganized at mariana es. He demonstrates no verbal or physical aggressiveness. He demonstrates no involuntary repetitive movements. He maintains a constricted affect today. He reports no thoughts of harming himself or others. Impression/plan: Continued symptoms of psychosis. He has been taking the Haldol orally. We will offer Cogentin 0.5 mg up to twice daily as needed for any side effects related to Haldol. Vital signs reviewed. There has been an improvement in his behavior but his symptoms of psychosis are still present. We will continue to monitor him for safety and encourage participation in the milieu. He requires continued psychiatric hospitalization.
[2018-11-04] MEDS: BENZTROPINE MESYLATE 0.5 MG TAB PO PRN ×2 (09:43→21:07)
[2018-11-05] MEDS: ACETAMINOPHEN TAB 325 MG TAB PO PRN ×3 (00:28→20:50)
[2018-11-05] MEDS: LORazepam 1 MG TAB PO PRN ×2 (00:29→20:50)
[2018-11-05] MEDS: BENZTROPINE MESYLATE 0.5 MG TAB PO PRN ×2 (08:22→20:50)
[2018-11-05] MEDS: HALOPERIDOL 5 MG TAB PO SCH ×2 (08:22→20:50)
--- NOTE | 2018-11-05 09:36 | P.PN ---
Progress Note - Text Interval history: The patient's found the hallway he follows me to an interview room. He indicates he has good news that the felony charges were dropped and he only had to plead guilty to a misdemeanor. He states this will help with his plan to get to [place] as they do not want felons crossing the bridge. He states he did try the Cogentin yesterday and described it as "bitter". He continues to spontaneously describe a variety of disorganized psychotic thinking. Staff recorded he slept 4 hours. He continues to adequately eat. Mental status exam: The patient is alert he is dressed in his own clothing grooming adequate. Eye contact is appropriate. He maintains a constricted affect but is cooperative during our interaction. He has spontaneous speech he is verbose. He has disorganization of his thought he describes a variety of disorganized delusional thoughts. He reports no thoughts of self-harm or harm to others. Insight and judgment impacted by psychotic thinking. He demonstrates no verbal or physical aggressiveness. He was easily directable in the session. He is in no physical distress he demonstrates no involuntary repetitive movements. He is oriented to person place daily the week month and year. Impression/plan: The patient continues to have acute symptoms of psychosis that impact his insight and subsequent judgment. His behavior is much improved. He is much more approachable and directable during our interactions. We will discuss his placement needs during treatment team meeting. Vital signs reviewed. He is not appropriate for a lesser level of care at this time.
[2018-11-06] MEDS: HALOPERIDOL 5 MG TAB PO SCH ×2 (08:42→20:50)
[2018-11-06] MEDS: BENZTROPINE MESYLATE 0.5 MG TAB PO PRN ×2 (08:43→20:50)
[2018-11-06] MEDS: ACETAMINOPHEN TAB 325 MG TAB PO PRN ×2 (08:43→18:56)
--- NOTE | 2018-11-06 10:27 | P.PN ---
Progress Note - Text Interval history: The patient is found in the hallway he follows me to an interview room. He indicates his mood is stable. He continues to be focused on a discharge date. He is happy that he was able to shave today. He initially states that once he leaves here he will does be homeless but he would consider residing at a [facility] temporarily. He has no questions regarding his medications. He indicates he slept last night staff report he slept 6 hours. Appetite stable. Mental status exam: The patient is alert hygiene grooming much improved. Eye contact is appropriate. He is cooperative and easily directable. He is reporting no thoughts of harming himself or others. He reports no auditory or visual hallucinations. He needs to have specific delusions. He states he still needs to get in contact with the FBI and he wants to continue developing mind wave technology. He demonstrates no verbal or physical aggressiveness. Insight and judgment slowly improving. Affect is constricted. He has spontaneous speech that's nonpressured he is verbose. Impression/plan: Symptoms of psychosis slowly improving. Behaviorally he is doing much better. He does continue to have delusional thoughts that he spontaneously verbalizes. It appears that he is getting closer to the point of being discharged. He is beginning to accept the fact that he needs somewhere to stay and he will consider utilizing the [facility]. Vital signs reviewed. We will monitor him for safety. We will discuss his progress and treatment team meeting
[2018-11-06] MEDS: MAG HYDROX/AL HYDROX/SIMETH 30 ML CUP PO PRN (16:16)
[2018-11-06] MEDS: LORazepam 1 MG TAB PO PRN (18:56)
[2018-11-07] MEDS: ACETAMINOPHEN TAB 325 MG TAB PO PRN ×2 (08:43→20:06)
[2018-11-07] MEDS: BENZTROPINE MESYLATE 0.5 MG TAB PO PRN ×2 (08:43→20:06)
[2018-11-07] MEDS: HALOPERIDOL 5 MG TAB PO SCH ×2 (08:44→20:06)
--- NOTE | 2018-11-07 09:36 | P.PN ---
Progress Note - Text Interval history: The patient is found in the hallway he follows me to an interview room. He continues to comply with the Haldol he states he has been using the Cogentin and he provides benefit. He indicates he slept last night staff reportedly slept 5-6 hours. Appetite is stable. He continues to ask questions about custodial placement and participation with community mental health as part of his court order. He states he wants to get a hold of a textile engraver that he knows as he wants to create a "earth suit". He states it would be used in both cold and hot climates. He goes on to describe his intention to change his social security number. Mental status exam: The patient is alert hygiene grooming have improved eye cont act is appropriate he is pleasant cooperative. He maintains a constricted affect. He reports no suicidal or homicidal ideation intent or plan. He reports no auditory or visual hallucinations. He does continue to have some delusional thought content. Behaviorally he is doing much better and is directable. He does have some difficulty retaining information as we seem to be covering the same questions each day. He is demonstrating no verbal or physical aggressiveness he demonstrates no involuntary repetitive movements. He is oriented to person place and date of the week month and year. He describes a variety of future oriented plans. He seems more amenable to residing at the local custodial and following up with community mental health. He is able to echo that they are able to assist him in obtaining resources in the community. Impression/plan: The patient will be continued on the Haldol and Cogentin as written. We will plan on using a Haldol decanoate prior to discharge. If he demonstrates further improvement and remains clinically stable we'll consider discharging him early next week. It may be that he does have symptoms of psychosis at baseline. His overall function is improving he is demonstrating no agitated behavior. Vital signs reviewed.
[2018-11-08] MEDS: MAG HYDROX/AL HYDROX/SIMETH 30 ML CUP PO PRN ×2 (05:09→17:08)
[2018-11-08] MEDS: LORazepam 1 MG TAB PO PRN ×3 (05:31→20:03)
[2018-11-08] MEDS: HALOPERIDOL 5 MG TAB PO SCH ×2 (08:29→20:03)
[2018-11-08] MEDS: BENZTROPINE MESYLATE 0.5 MG TAB PO PRN ×2 (08:31→20:03)
--- NOTE | 2018-11-08 15:06 | P.PN ---
Progress Note - Text Progress Note Date: 11/08/18 Interval history: Patient is seen in cross coverage today. He reports that his mood is calm. He does seem to be eating well. He does not seem to verbalize any adverse psychotropic medication side effects. Makes reference to being homeless. He makes reference to a "mission" several times. Mental status exam: He is alert and cooperative with the interview. He does not show any agitation. He describes his mood as "calm." He does not verbalize any others. Regarding any hallucinations he makes reference to a "mind wave gianluca." His thought processes do seem to show some disorganization at times. He makes reference to a mission several times. Plan: Patient be maintained on current psychotropic medication regimen. Continue to monitor for any medication side effects and monitor his ongoing response to treatment.
[2018-11-09] MEDS: MAG HYDROX/AL HYDROX/SIMETH 30 ML CUP PO PRN ×2 (06:01→17:15)
[2018-11-09] MEDS: LORazepam 1 MG TAB PO PRN ×2 (09:27→19:47)
[2018-11-09] MEDS: HALOPERIDOL 5 MG TAB PO SCH ×2 (09:27→19:47)
[2018-11-09] MEDS: BENZTROPINE MESYLATE 0.5 MG TAB PO PRN ×2 (09:27→19:49)
--- NOTE | 2018-11-09 15:34 | P.PN ---
Progress Note - Text Progress Note Date: 11/09/18 Interval history: Patient is seen again in cross coverage. He relays that he is sleeping well and seems to be eating well. He does not verbalize any adverse psychotropic medication side effects. Mental status exam: He is alert and cooperative with the interview. When asked about hallucinations he again talks about mindwave. He denies any thoughts of harm to self or others. He does not show any agitation. He makes reference to working with the [employer]. Plan: Patient will be maintained on current psychotropic medication regimen. Continue to monitor for any medication side effects monitor his ongoing response to treatment.
[2018-11-09] MEDS: LORazepam 2 MG/ML INJ IM PRN (19:33)
[2018-11-10] MEDS: ACETAMINOPHEN TAB 325 MG TAB PO PRN ×2 (06:14→10:29)
[2018-11-10 07:02] VITALS: BP 119/57; PULSE 85; RESP 18; TEMP 98.3
[2018-11-10] MEDS: HALOPERIDOL 5 MG TAB PO SCH (08:07)
[2018-11-10] MEDS: BENZTROPINE MESYLATE 0.5 MG TAB PO PRN (08:07)
[2018-11-10] MEDS: LORazepam 1 MG TAB PO PRN (08:08)
[2018-11-10] MEDS ORDERED: HALOPERIDOL DECANOATE 100 MG/ML 1 ML VIAL IM SCH (09:00)
--- NOTE | 2018-11-10 11:27 | P.DS ---
Providers Date of admission: 10/14/18 13:41 Expected date of discharge: 11/10/18 Attending physician: Franky Borja Consults: 10/14/18 15:18 Consult Physician Routine Consulting Provider: Arnaldo Physician Consult Reason/Comments: H&P and medical and right foot wound care Do you want consulting provider notified?: Yes Primary care physician: Stated None - Discharge Diagnosis(es) (1) Schizophrenia Current Visit: Yes Status: Acute Priority: High Hospital Course: This patient is a 53-year-old male who is admitted to the mental health unit with acute symptoms of psychosis. He presented with paranoia he believed that he and people around him are being threatened thoughts were found to be disorganized and he was describe any delusional thought content. He was placed in retirement in September for trespassing disorderly conduct and resisting obstructing. He was transferred to us from the retirement. For full details please refer to the psychiatric evaluation dated 10/15/2018. Summary of hospital course: The patient was admitted to the mental health unit involuntarily. He was initially seen by Dr. Roberson who provided care until 10/21/2018 when I took over the case. The patient's was acutely irritable and agitated early into the admission. He refused to speak with me. He would predominately isolate in his room other than meals and times when he would pace in the hallway. At that time when I attempted to speak with them he would accuse me of trying to extort him and he would close the door. We had to wait for the court hearing as the patient did not deferred. A treatment order was issued. At that time the patient was offered oral Haldol. For numerous days he refused to take the medication orally and received injections of the medication. After several days there appeared to be clear benefit from the antipsychotic medication. Behaviorally he improved significantly. He began attending his ADLs he was more cooperative with staff interaction. He no longer demonstrated any acute agitation. He does continue to demonstrate symptoms of psychosis but his ability to maintain his ADLs attending groups has greatly improved. He understands that senior living placement is available in that he is on a treatment order and will have to continue working with community mental health upon discharge. During the hospitalization he was taken to court for his criminal charges and those were dropped and he no longer was on a retirement hold. The patient was seen by internal medicine for routine history and physical exam. kiln worker has met with him several times to complete a psychosocial assessment and for discharge planning purposes. Mental status exam: The patient is alert pleasant easily directed. Hygiene and grooming are much improved. Eye contact is good. He reports no suicidal ideation intent or plan no homicidal ideation intent or plan. He is reporting no auditory or visual hallucinations. He still has some disorganized delusions. He may have symptoms of psychosis as part of his baseline function. He demonstrates no verbal or physical aggressiveness. He demonstrates no involuntary of movements. He is future oriented. He demonstrates some disorganization of his thought but it is much improved. He does not appear hypomanic or manic. Insight and judgment have improved. Affect is mostly constricted but he will demonstrate brief smiling at times. Impressions 1. Schizophrenia Plan: The patient will be discharged mental health unit today. He is on an existing treatment order. He has received Haldol decanoate 100 mg today. We will continue his oral Haldol for one more week. He may continue the Cogentin 0.5 mg twice daily. Social work will arrange his outpatient mental health follow-up. It appears he will most likely reside at a local senior living. He is instructed to continue abstaining from any use of alcohol marijuana or illicit drugs is a can precipitate symptoms of psychosis and elevate his safety risk. As noted above it is suspected that he has symptoms of psychosis as part of his baseline. He has demonstrated significant improvement while on the mental health unit. He is demonstrating no aggressive behavior he reports no thoughts of harming himself or others. He is able to participate in his own activities of daily living and he is easily directable. At this time there is no imminent safety risk he does not require continued involuntary psychiatric hospitalization. He is instructed to return to the hospital if any acute safety concerns. He will be transition to outpatient care. Patient Condition at Discharge: Stable Plan - Discharge Summary New Discharge Prescriptions: New Benztropine Mesylate [Cogentin] 0.5 mg PO BID PRN #60 tab PRN Reason: Extrapyramidal Effects Haloperidol [Haldol] 5 mg PO BID #14 tab Haloperidol Decanoate [Haldol D] 100 mg IM Q28D #1 vial Discharge Medication List Benztropine Mesylate [Cogentin] 0.5 mg PO BID PRN #60 tab 09/09/19 [Rx] Haloperidol Decanoate [Haldol D] 100 mg IM Q28D #1 vial 11/10/18 [Rx] Haloperidol [Haldol] 5 mg PO BID #14 tab 11/10/18 [Rx] Follow up Appointment(s)/Referral(s): None,Stated [Primary Care Provider] - 1-2 days Patient Instructions/Handouts: Memory Loss in Older Adults (GEN), Psychotic Disorder (DC) Activity/Diet/Wound Care/Special Instructions: Activity and diet as tolerated. No guns or weapons in the home. Refrain from any alcohol and drugs not prescribed by physician. Please take all medications as prescribed, and attend all after care appointments as scheduled. If in need of medication refills, please go to your primary care physician, or your out patient psychiatric provider. If in crisis, please go the nearest ER for evaluation, or call the crisis line at [phone].
== END 2018-11-10 13:28 | disposition home or self-care (01) | DRG 885 ==
LOC: EC 09:21 → 3MHU 13:41
PROVIDERS: ADMIT Psychiatry & Neurology Psychiatry; ATTEND Psychiatry & Neurology Psychiatry
DX: F25.9 Schizoaffective disorder, unspecified (principal); Z59.0 Homelessness; F60.0 Paranoid personality disorder; Z91.83 Wandering in diseases classified elsewhere; Z65.3 Problems related to other legal circumstances
CPT/HCPCS: 80306; 82075; 96372; 99285